=== PATIENT | female | born 1950 | race Caucasian/White ===

== ENCOUNTER → 2017-01-05 | Outpatient (CLI) | payer OTHER | LOC: BRMIMAGING 08:50 | PROVIDERS: ATTEND Family Medicine | DX: M81.0 Age-related osteoporosis without current pathological fracture (principal) ==

== ENCOUNTER 2017-05-28 09:41 | Emergency (ER) | payer OTHER ==
[2017-05-28 09:58] VITALS: RESP 18
--- NOTE | 2017-05-28 10:53 | EDPHY ---
H & P Stated Complaint: Recent cruise with many people w/URI sxs;cough x 2 wks Source: Patient Exam Limitations: No limitations - Personal History Current Tetanus Diphtheria and Acellular Pertussis (TDAP): Yes - Medical/Surgical History Hx Asthma: Yes Hx Chronic Respiratory Disease: Yes Other PMH: bronchiolitis - Social History Smoking Status: Never smoked Time Seen by Provider: 05/28/17 10:52 HPI/ROS: HPI: This is a 67-year-old female who presents with Chief Complaint: Recent cruise with many people w/URI sxs;cough x 2 wks Location: Chest Quality: Cough Duration: 2 weeks Signs and Symptoms: No fever, positive chills, no joint pain, no neck stiffness , no headache, no chest pain, no shortness of breath, + nasal congestion, sinus pressure Timing: Daily, intermittent in nature Severity: [id number] Context: Patient had a recent cruise to [facility] approximately 2 weeks ago. She did not receive her influenza vaccine this year. Snf through the cruise she noted productive cough accompanied by nasal congestion and sinus pressure. She has been taking Mucinex, Sudafed without improvement. Her has had no symptoms. She denies any lower extremity swelling, chest pain, palpitations, shortness of breath. She is a nonsmoker. She describes her cough is loose and intermittent in nature. Modifying Factors: See above Comment: ROS: see HPI Constitutional: No fever, no chills, no weight loss Eyes: No blurred vision Respiratory: No shortness of breath, + cough Cardiovascular: No chest pain Gastrointestinal: No nausea, no vomiting, no diarrhea Genitourinary: No dysuria Extremities: No myalgias Neurologic: No weakness, no numbness Skin: No rashes Hematologic: No bruising, no bleeding MEDICAL/SURGICAL/SOCIAL HISTORY: Medical history: Generally healthy. Does not take any regular medications. Surgical history: Denies Social history: CONSTITUTIONAL: Pleasant nontoxic appearance elderly white female who appears younger than stated age, awake and alert, no obvious distress HEENT: Atraumatic and normocephalic, PERRL, EOMI. Tympanic membranes clear. Oropharynx clear, no exudate and moist pink mucosa. Airway patent. No lymphadenopathy. No meningismus. Cardiovascular: Normal S1/S2, regular rate, regular rhythm, without murmur rub or gallop. PULMONARY/CHEST: Symmetrical and nontender. Clear to auscultation bilaterally. Good air movement. No accessory muscle usage. ABDOMEN: Soft, nondistended, nontender, no rebound, no guarding, no peritoneal signs, no masses or organomegaly. No CVAT. EXTREMITIES: 2/2 pulses, strength 5/5, no deformities, no clubbing, no cyanosis or edema. No calf tenderness. No palpable cord. Negative Homans sign. NEUROLOGICAL: no focal neuro deficits. GCS 15. SKIN: Warm and dry, no erythema. no rash. Good capillary refill. (Armida Leyva) Constitutional: Initial Vital Signs Temperature (C) 36.9 C 05/28/17 09:45 Heart Rate 77 05/28/17 09:45 Respiratory Rate 18 05/28/17 09:45 Blood Pressure 166/102 H 05/28/17 09:45 O2 Sat (%) 92 05/28/17 09:45 O2 Delivery Mode Room Air Allergies/Adverse Reactions: No Known Allergies Allergy (Unverified 05/28/17 09:57) Home Medications: Medication Instructions Recorded Albuterol [Ventolin Hfa Inhaler] 05/28/17 Azithromycin [Zithromax] 250 mg PO DAILY #6 tab 05/28/17 Benzonatate [Tessalon Pearles (RX)] 100 mg PO TID PRN #12 cap 05/28/17 Levothyroxine Sodium [Levoxyl] 125 mcg PO 05/28/17 predniSONE [predniSONE TAPER] 10 mg PO DAILY 6 Days ea 05/28/17 Medical Decision Making ED Course/Re-evaluation: Labs, influenza, chest x-ray, IV fluids, EKG ordered Afebrile. No systemic signs. O2 sats 92% on room air upon arrival Negative for influenza a, influenza B Chest x-ray my read via PAC shows no opacity, effusion, pneumothorax. Urinalysis shows no signs of infection does show trace blood 1256: D-dimer 2.42; CTA chest ordered to evaluate for pulmonary embolism No signs of sepsis/acute kidney injury Called by radiologist and chronic bronchiectasis changes, no pulmonary embolism (Armida Leyva) The patient was evaluated and managed by the physician assistant cook. I have reviewed this chart and I agree with the findings and plan of care as documented , as indicated by my signature. I am the secondary supervising physician. ( Irasema Coe) Differential Diagnosis: Shortness of breath including but not limited to pulmonary infectious process, COPD, asthma, pulmonary embolus and congestive heart failure. (Armida Leyva) - Data Points Laboratory Results: Laboratory Results 05/28/17 11:20 05/28/17 11:20 Departure - Departure Disposition: Home, Routine, Self-Care Clinical Impression: Bronchitis Condition: Good Instructions: Acute Bronchitis (ED) Additional Instructions: CTA chest scan shows no pulmonary embolism, + bronchitis. Take antibiotic and steroid taper as directed. Use Tessalon Perles 3 times a day as needed for cough. Referrals: Brennon Brannon MD [Primary Care Provider] - 3-4 days, if not improved Prescriptions: Azithromycin [Zithromax] 250 mg PO DAILY #6 tab Benzonatate [Tessalon Pearles (RX)] 100 mg PO TID PRN #12 cap PRN Reason: Cough, Moderate predniSONE [predniSONE TAPER] 10 mg PO DAILY 6 Days ea
[2017-05-28 11:30] LABS: % IMMATURE GRANULYOCYTES 0.4 % (0.0-1.1); ABSOLUTE IMMATURE GRANULOCYTES 0.05 10^3/uL (0.00-0.10); ADD DIFF? NO; ADD MORPH? NO; ADD SCAN? NO; ATYPICAL LYMPHOCYTE FLAG 0 (0-99); FRAGMENT RBC FLAG 0 (0-99); HEMATOCRIT 45.5 % (38.0-47.0); HEMOGLOBIN 15.8 g/dL (12.6-16.3); LEFT SHIFT FLG 0 (0-99); LIPEMIA HEMOLYSIS FLAG 90 (0-99); MEAN CELL HEMOGLOBIN 32.8 pg (27.9-34.1); MEAN CELL HEMOGLOBIN CONCENTR. 34.7 g/dL (32.4-36.7); MEAN CELL VOLUME 94.4 fL (81.5-99.8); MEAN PLATELET VOLUME 9.8 fL (8.7-11.7); PLATELET CLUMPS FLAG 10 (0-99); PLATELET COUNT 320 10^3/uL (150-400); RED BLOOD CELL COUNT 4.82 10^6/uL (4.18-5.33); RED CELL DISTRIBUTION WIDTH 13.2 % (11.5-15.2)
[2017-05-28 11:33] LABS: COLOR YELLOW; LEUKOCYTE ESTERASE,URINE NEGATIVE (NEGATIVE); NITRITE,URINE NEGATIVE (NEGATIVE)
[2017-05-28 11:42] LABS: MUCUS TRACE /lpf (NONE-1+)
[2017-05-28 11:43] LABS: ANION GAP 13 mEq/L (8-16); BILIRUBIN,TOTAL 0.7 mg/dL (0.1-1.4); CALCIUM 9.5 mg/dL (8.5-10.4); CARBON DIOXIDE 25 mEq/l (22-31); CHLORIDE 102 mEq/L (97-110); CREATININE 0.7 mg/dL (0.6-1.0); GLOMERULAR FILTRATION RATE > 60; GLUCOSE 100 mg/dL (70-100); POTASSIUM 4.2 mEq/L (3.5-5.2); SODIUM 140 mEq/L (134-144)
[2017-05-28 11:45] LABS: WBC,URINE NONE SEEN /hpf (0-3)
[2017-05-28 11:46] LABS: APTT 29.7 SEC (23.0-38.0); INR 0.95 (0.83-1.16); PROTIME(PATIENT) 12.6 SEC (12.0-15.0)
[2017-05-28 11:57] LABS: TROPONIN I < 0.012 ng/mL (0.000-0.034)
[2017-05-28] MEDS ORDERED: IOPAMIDOL (ISOVUE 370) 100 ML BTL IV ONE (14:01)
[2017-05-28 14:42] VITALS: BP 179/91; PULSE 84; TEMP 98.2; O2SAT 92
== END 2017-05-28 14:42 | disposition home or self-care (01) ==
DX: J45.909 Unspecified asthma, uncomplicated (principal)
CPT/HCPCS: 71020; 71275; 99285; Q9967